=== PATIENT | male | born 1975 | race Caucasian/White ===

== ENCOUNTER 2019-12-30 08:55 | Emergency (ER) | payer OTHER ==
[~2019-12-30] VITALS: Ht 175.3 cm; Wt 113.6 kg
[2019-12-30 09:09] VITALS: Ht 175.3 cm; Wt 113.6 kg
[2019-12-30] MEDS ORDERED: NORVASC10 MG PO (09:10)
[2019-12-30] MEDS ORDERED: OMEPRAZOLE20 M1 PO (09:10)
[2019-12-30] MEDS ORDERED: KEPPRA500 MG PO (09:10)
[2019-12-30] MEDS ORDERED: ZOCOR20 MG PO (09:11)
[2019-12-30] MEDS ORDERED: PROZAC20 MG PO (09:11)
[2019-12-30 11:14] VITALS: BP 107/65
[2019-12-30] MEDS ORDERED: FIORICET/ESGIC1 TAB PO (11:54)
[2019-12-30] MEDS ORDERED: ZOFRAN ODT4 MG/UDTAB PO (11:54)
== END 2019-12-30 12:01 | disposition home or self-care (01) ==
LOC: D.ER 08:55
DX: R51 Headache (principal); I10 Essential (primary) hypertension; K21.9 Gastro-esophageal reflux disease without esophagitis; Z72.0 Tobacco use